=== PATIENT | male | born 1995 | race Caucasian/White ===

== ENCOUNTER 2017-09-20 16:05 | Emergency (ER) | payer OTHER, MEDICAID ==
[2017-09-20] MEDS: KETOROLAC TROMETHAMINE 10 MG TAB PO (21:15)
[2017-09-20] MEDS: OXYCODONE/APAP 5MG/325MG(BULK FOR ED) 1 TABLET PO (21:18)
== END 2017-09-20 21:24 | disposition home or self-care (01) ==
LOC: M ED 16:05
DX: S39.012A Strain of muscle, fascia and tendon of lower back, initial encounter (principal); X50.0XXA Overexertion from strenuous movement or load, initial encounter; Y92.512 Supermarket, store or market as the place of occurrence of the external cause
CPT/HCPCS: 99283

== ENCOUNTER 2023-04-19 03:32 | Emergency (ER) | payer OTHER, SELFPAY ==
[~2023-04-19] VITALS: Ht 185.4 cm; Wt 116.8 kg
[~2023-04-19 03:32] MED LIST: ALEV1TAB PO; CYCL-707 PO
[2023-04-19] MEDS ORDERED: IBUPROFEN 600MG TAB PO ONE (06:25)
[2023-04-19 06:58] VITALS: BP 118/74; TEMP 97.8; O2SAT 99
== END 2023-04-19 06:59 | disposition home or self-care (01) ==
LOC: M ED 03:32
DX: J09.X1 Influenza due to identified novel influenza A virus with pneumonia (principal); M54.50 Low back pain, unspecified